=== PATIENT | female | born 1990 | race Caucasian/White ===

== ENCOUNTER → 2017-11-10 | Outpatient (REF) | payer BC ==
[2017-11-10 19:06] LABS: PLATELET COUNT, AUTOMATED 250 K/uL (150-450)
== END ==
PROVIDERS: ATTEND Physician Assistant Medical
DX: I88.9 Nonspecific lymphadenitis, unspecified (principal)
CPT/HCPCS: 82040; 82247; 82310; 82374; 82435; 82565; 82947; 84075; 84132; 84155; 84295; 84450; 84460; 84520; 85025